=== PATIENT | male | born 1970 | race Caucasian/White ===

== ENCOUNTER 2022-07-08 10:20 | Day surgery (SDC) | payer BC ==
[~2022-07-08] VITALS: Ht 185.4 cm; Wt 77.1 kg
[~2022-07-08 10:20] MED LIST: NORCO 325 MG-51 TAB PO
[2022-07-08 12:38] VITALS: BP 118/85; PULSE 64; TEMP 98.6
[2022-07-08] MEDS ORDERED: NORCO 325 MG-51 TAB PO (14:12)
[2022-07-08 14:45] VITALS: BP 122/91; PULSE 72; TEMP 98
--- NOTE | 2022-07-08 14:45 | NUR ---
1445 PATIENT RETURNS TO ROOM 6 VIA CART. PATIENT IS ALERT AND ORIENTED, VERY PLEASANT. RESPIRATIONS EVEN AND UNLABORED. VITAL SIGNS OBTAINED. 3 INCISION SITES TO ABDOMEN WITH GLUE. ALL SITES CDI. 1500 PATIENT REQUESTED COFFEE. NO DIFFICULTIES SWALLOWING. 1530 DISCHARGE INSTRUCTIONS REVIEWED WITH PATIENT. PATIENT VERBALIZED UNDERSTANDING WITH NO FURTHER QUESTIONS OR CONCERNS. 1535 DISCONTINUED IV FROM RIGHT HAND WITH NO DIFFICULTIES. 1540 PATIENT DRESSES SELF. 1545 PATIENT USES THE RESTROOM INDEPENDENTLY AND VOIDS WITH NO DIFFICULTY. 1550 PATIENT DISCHARGES VIA WHEELCHAIR.
[2022-07-08 15:00] VITALS: BP 113/69; PULSE 80
[2022-07-08 15:15] VITALS: BP 109/70; PULSE 81
== END 2022-07-08 15:50 | disposition home or self-care (01) ==
LOC: SDCO 10:20
DX: K43.6 Other and unspecified ventral hernia with obstruction, without gangrene (principal); F17.220 Nicotine dependence, chewing tobacco, uncomplicated
CPT/HCPCS: C1781; J0690; J1100; J1170; J1885; J2405; J2704; J3010; J7120